=== PATIENT | female | born 1960 | race Asian ===

== ENCOUNTER 2017-04-28 18:10 | Outpatient (CLI) | payer OTHER | END 2017-04-28 18:14 | disposition short-term general hospital (02) | LOC: AMB 18:10 | DX: M54.5 Low back pain (principal); V49.88XA Car occupant (driver) (passenger) injured in other specified transport accidents, initial encounter; Y92.488 Other paved roadways as the place of occurrence of the external cause | CPT/HCPCS: A0425; A0427 ==

== ENCOUNTER 2017-04-28 18:25 | Emergency (ER) | payer OTHER ==
[~2017-04-28] VITALS: Ht 172.7 cm; Wt 117.9 kg
== END 2017-04-28 21:09 | disposition home or self-care (01) ==
LOC: ED 18:25
DX: S70.12XA Contusion of left thigh, initial encounter (principal); S39.012A Strain of muscle, fascia and tendon of lower back, initial encounter; S16.1XXA Strain of muscle, fascia and tendon at neck level, initial encounter; V43.52XA Car driver injured in collision with other type car in traffic accident, initial encounter
CPT/HCPCS: 99283